=== PATIENT | male | born 1985 | race Caucasian/White ===

== ENCOUNTER 2016-10-10 16:15 | Emergency (ER) | payer OTHER ==
[~2016-10-10] VITALS: Ht 165.1 cm; Wt 90.6 kg
[2016-10-10 16:51] LABS: MCH 30.5 PG (29.0-34.0); MCHC 34.8 G/DL (30.0-36.0); MCV 87.8 FL (86-99); PLATELET COUNT 344 K/uL (156-360); RBC DIS.WIDTH-SD 38.6 % (39-53); RED BLOOD COUNT 5.01 M/uL (4.00-5.50); WHITE BLOOD COUNT 11.5 K/uL (4.1-10.2)
[2016-10-10 17:01] LABS: CHLORIDE 107 mEq/L (99-109); POTASSIUM 3.5 mEq/L (3.7-5.4); SODIUM 142 mEq/L (136-147)
[2016-10-10 17:04] LABS: GLUCOSE 92 mg/dL (70-99)
[2016-10-10 17:05] LABS: ANION GAP 10 MEQ/L (2-14)
[2016-10-10 17:06] LABS: TOTAL BILIRUBIN 0.3 mg/dL (0.0-1.0)
[2016-10-10 17:07] LABS: ALKALINE PHOSPHATASE 60 IU/L (3-129); GFR ESTIMATE (CALCULATED) > 59 mL/min/
[2016-10-10 17:08] LABS: UREA NITROGEN (BUN) 14 mg/dL (9-23)
[2016-10-10 17:11] LABS: LIPASE 12 U/L (1.0-51.0)
[2016-10-10 18:01] LABS: ADD MIUA? NO; BILIRUBIN NEGATIVE; BLOOD NEGATIVE; COLOR YELLOW ((YELLOW)); GLUCOSE (STRIP) NEGATIVE; KETONES NEGATIVE; LEUKOCYTES NEGATIVE; NITRITE NEGATIVE; PROTEIN (STRIP) NEGATIVE; SPECIFIC GRAVITY 1.008 (1.000-1.030); UCUL ADDED? NO; UROBILINOGEN 0.2 MG/DL (0.2-1.0)
[2016-10-10] MEDS ORDERED: CITRATE OF MAG296 ML PO (19:26)
[2016-10-10] MEDS ORDERED: BENTYL20 MG PO (19:26)
[2016-10-10 20:02] VITALS: BP 124/90
== END 2016-10-10 20:04 | disposition home or self-care (01) ==
LOC: EME 16:15
DX: R10.9 Unspecified abdominal pain (principal); K59.00 Constipation, unspecified; F17.200 Nicotine dependence, unspecified, uncomplicated
CPT/HCPCS: 74176; 80053; 81003; 83690; 85027; 99281; 99284; J3010